=== PATIENT | male | born 1980 | race Caucasian/White ===

== ENCOUNTER 2020-08-16 11:08 | Emergency (ER) | payer OTHER ==
[2020-08-16] MEDS ORDERED: ALPRAZolam 0.25 MG TAB PO STA (11:20)
--- NOTE | 2020-08-16 11:22 | ED ---
General Adult HPI - General Source: patient, EMS Mode of arrival: EMS Limitations: no limitations <Isaac Brunner - Last Filed: 08/16/20 11:22> <Darren Bernal - Last Filed: 08/16/20 18:48> - General Chief complaint: Psychiatric Symptoms Stated complaint: Mental Health Time Seen by Provider: 08/16/20 11:10 - History of Present Illness Initial comments: Dictation was produced using [employer] dictation software. please excuse any grammatical, word or spelling errors. This patient was cared for during a federal and state declared state of emergency secondary to Covid 19 Chief Complaint: 39-year-old male presents with suicidal ideation History of Present Illness: 39-year-old value was transferred to us from [facility]. 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 Patient states his migraines been racing. States he's been feeling depressed, hopeless and suicidal. He does not have a specific plan. Patient has no medical complaints at this time. Somewhat ideation. Denies any visual or auditory hallucinations. The ROS documented in this emergency department record has been reviewed and confirmed by me. Those systems with pertinent positive or negative responses have been documented in the HPI. All other systems are other negative and/or noncontributory. PHYSICAL EXAM: General Impression: Alert and oriented x3, not in acute distress HEENT: Normocephalic atraumatic, extra-ocular movements intact, pupils equal and reactive to light bilaterally, mucous membranes moist. Cardiovascular: Heart regular rate and rhythm Chest: Able to complete full sentences, no retractions, no tachypnea Abdomen: abdomen soft, non-tender, non-distended, no organomegaly Musculoskeletal: Pulses present and equal in all extremities, no peripheral edema Motor: no focal deficits noted Neurological: CN II-XII grossly intact, no focal motor or sensory deficits noted Skin: Intact with no visualized rashes Psych: Normal affect and mood ED course: 39-year-old male presents with suicidal ideation. As upon arrival are within acceptable limits. Patient clear for EPS evaluation. (Isaac Brunner) - Related Data Allergies Allergy/AdvReac Type Severity Reaction Status Date / Time No Known Allergies Allergy Verified 08/16/20 12:19 Review of Systems ROS Other: All systems not noted in ROS Statement are negative. <Isaac Brunner - Last Filed: 08/16/20 11:22> ROS Other: All systems not noted in ROS Statement are negative. <Darren Bernal - Last Filed: 08/16/20 18:48> ROS Statement: Those systems with pertinent positive or pertinent negative responses have been documented in the HPI. Past Medical History Past Medical History: No Reported History History of Any Multi-Drug Resistant Organisms: None Reported Past Surgical History: No Surgical Hx Reported Past Psychological History: Bipolar Smoking Status: Never smoker Past Alcohol Use History: None Reported Past Drug Use History: Cocaine, Heroin, Methamphetamine, Opiates <Isaac Brunner - Last Filed: 08/16/20 11:22> General Exam Limitations: no limitations <Isaac Brunner - Last Filed: 08/16/20 11:22> Course Vital Signs 08/16/20 08/16/20 11:13 17:56 Temperature 98.3 F 98.3 F Pulse Rate 78 102 H Respiratory 20 20 Rate Blood Pressure 128/74 128/68 O2 Sat by Pulse 99 99 Oximetry Medical Decision Making - Lab Data Result diagrams: 08/16/20 17:55 08/16/20 17:55 <Darren Bernal - Last Filed: 08/16/20 18:48> - Medical Decision Making Patient seen by mental health services with plans for admission or transfer. Patient reevaluated by myself, Dr. Bernal. Patient states he is having problems and in rehab for multiple illicit drug use. Patient amiss to feeling depressed and having suicidal thoughts still. Positive clinical certificate completed. (Darren Bernal) - Lab Data Lab Results 08/16/20 08/16/20 08/16/20 Range/Units 17:25 17:55 17:55 WBC 8.9 (3.8-10.6) k/uL RBC 5.81 (4.30-5.90) m/uL Hgb 17.7 H (13.0-17.5) gm/dL Hct 52.7 (39.0-53.0) % MCV 90.6 (80.0-100.0) fL MCH 30.5 (25.0-35.0) pg MCHC 33.6 (31.0-37.0) g/dL RDW 11.9 (11.5-15.5) % Plt Count 237 (150-450) k/uL MPV 6.7 Neutrophils % 52 % Lymphocytes % 32 % Monocytes % 9 % Eosinophils % 3 % Basophils % 2 % Neutrophils # 4.6 (1.3-7.7) k/uL Lymphocytes # 2.9 (1.0-4.8) k/uL Monocytes # 0.8 (0-1.0) k/uL Eosinophils # 0.3 (0-0.7) k/uL Basophils # 0.2 (0-0.2) k/uL Sodium 138 (137-145) mmol/L Potassium 4.4 (3.5-5.1) mmol/L Chloride 103 (98-107) mmol/L Carbon Dioxide 28 (22-30) mmol/L Anion Gap 7 mmol/L BUN 23 H (9-20) mg/dL Creatinine 0.96 (0.66-1.25) mg/dL Est GFR (CKD-EPI)AfAm >90 (>60 ml/min/1.73 sqM) Est GFR (CKD-EPI)NonAf >90 (>60 ml/min/1.73 sqM) Glucose 94 (74-99) mg/dL Calcium 9.7 (8.4-10.2) mg/dL Total Bilirubin 0.7 (0.2-1.3) mg/dL AST 38 (17-59) U/L ALT 38 (4-49) U/L Alkaline Phosphatase 55 (38-126) U/L Total Protein 7.3 (6.3-8.2) g/dL Albumin 4.5 (3.5-5.0) g/dL Urine Opiates Screen Not Detected (NotDetected) Ur Oxycodone Screen Not Detected (NotDetected) Urine Methadone Screen Not Detected (NotDetected) Ur Propoxyphene Screen Not Detected (NotDetected) Ur Barbiturates Screen Not Detected (NotDetected) U Tricyclic Antidepress Not Detected (NotDetected) Ur Phencyclidine Scrn Not Detected (NotDetected) Ur Amphetamines Screen Not Detected (NotDetected) U Methamphetamines Scrn Not Detected (NotDetected) U Benzodiazepines Scrn Not Detected (NotDetected) Urine Cocaine Screen Not Detected (NotDetected) U Marijuana (THC) Screen Not Detected (NotDetected) Disposition <Bayudan,Isaac D - Last Filed: 08/16/20 11:22> Is patient prescribed a controlled substance at d/c from ED?: No Time of Disposition: 18:48 <Darren Bernal - Last Filed: 08/16/20 18:48> Clinical Impression: Depression, Suicidal ideation Disposition: TRANSFER TO PSYCH HOSP/UNIT Referrals: None,Stated [Primary Care Provider] - 1-2 days
[2020-08-16] MEDS ORDERED: IBUPROFEN 600 MG TAB PO STA (11:56)
[2020-08-16] MEDS: LORazepam 1 MG TAB PO SCH ×2 (12:59→17:39)
[2020-08-16] MEDS ORDERED: GABAPENTIN 300 MG CAP PO STA (17:36)
[2020-08-16 18:23] LABS: Basophils # (A) 0.2 k/uL (0-0.2); Basophils % (A) 2 %; Eosinophils # (A) 0.3 k/uL (0-0.7); Eosinophils % (A) 3 %; HCT 52.7 % (39.0-53.0); HGB 17.7 gm/dL (13.0-17.5); Lymphocytes # (A) 2.9 k/uL (1.0-4.8); Lymphocytes % (A) 32 %; MCH 30.5 pg (25.0-35.0); MCHC 33.6 g/dL (31.0-37.0); MCV 90.6 fL (80.0-100.0); Mean Platelet Volume 6.7; Monocytes # (A) 0.8 k/uL (0-1.0); Monocytes % (A) 9 %; Neutrophils # (A) 4.6 k/uL (1.3-7.7); Neutrophils % (A) 52 %; Platelet Count 237 k/uL (150-450); RBC 5.81 m/uL (4.30-5.90); RDW 11.9 % (11.5-15.5); WBC 8.9 k/uL (3.8-10.6)
[2020-08-16 18:40] LABS: ALT 38 U/L (4-49); AST 38 U/L (17-59); African American GFR (CKD) >90 (>60 ml/min/1.73 sqM); Albumin 4.5 g/dL (3.5-5.0); Alkaline Phosphatase 55 U/L (38-126); Anion Gap 7 mmol/L; Blood Urea Nitrogen 23 mg/dL (9-20); Calcium 9.7 mg/dL (8.4-10.2); Carbon Dioxide 28 mmol/L (22-30); Chloride 103 mmol/L (98-107); Glucose 94 mg/dL (74-99); Non-African American GFR(CKD) >90 (>60 ml/min/1.73 sqM); Potassium 4.4 mmol/L (3.5-5.1); Sodium 138 mmol/L (137-145); Total Bilirubin 0.7 mg/dL (0.2-1.3); Total Protein 7.3 g/dL (6.3-8.2)
[2020-08-16 18:46] LABS: Amphetamine Screen,Urine Not Detected (NotDetected); Barbiturate Screen,Urine Not Detected (NotDetected); Cocaine Screen,Urine Not Detected (NotDetected); Methadone Screen, Urine Not Detected (NotDetected); Opiate Screen,Urine Not Detected (NotDetected); Oxycodone Screen, Urine Not Detected (NotDetected); Phencyclidine Screen,Urine Not Detected (NotDetected); Urn Cannabinoid Scrn Not Detected (NotDetected)
[2020-08-16 18:49] LABS: Benzodiazepines Screen,Urine Detected (NotDetected); Tricyclic Antidepressant,Urine Detected (NotDetected)
[2020-08-17] MEDS: LORazepam 1 MG TAB PO SCH ×6 (04:05→17:26)
[2020-08-17] MEDS ORDERED: ALPRAZolam 0.5 MG TAB PO STA (12:24)
[2020-08-18 06:54] VITALS: PULSE 90; TEMP 98.7
[2020-08-18] MEDS: LORazepam 1 MG TAB PO SCH (09:04)
[2020-08-18 11:48] VITALS: BP 125/83; RESP 18
== END 2020-08-18 12:34 ==
LOC: EC 11:08
DX: R45.851 Suicidal ideations (principal); F32.9 Major depressive disorder, single episode, unspecified; F19.10 Other psychoactive substance abuse, uncomplicated; Z20.822 Contact with and (suspected) exposure to COVID-19
CPT/HCPCS: 36415; 80053; 80306; 82075; 85025; 87635; 99285